=== PATIENT | female | born 1935 | race Caucasian/White ===

== ENCOUNTER 2018-05-01 15:58 | Outpatient (CLI) | payer MEDICARE ==
--- NOTE | 2018-05-01 17:31 | RAD ---
AP AND LATERAL VIEW OF THE SACRUM AND COCCYX: 05/01/18 HISTORY: Sacral pain, M53.38. AP and lateral views of the sacrum and coccyx is obtained. FINDINGS/IMPRESSION: Images demonstrate mild anterolisthesis of L5 on S1. The sacrum and coccyx demonstrate no definite ev idence of displaced fractures. The patient appears to be osteoporotic. If there is concern for sacral pathology, correlate with bone scan and/or possible MRI if clinically indicated. POS: [facility]
--- NOTE | 2018-05-01 17:34 | RAD ---
TWO VIEWS LUMBAR SPINE 05/01/18 HISTORY: Patient with fall. Hematoma to buttock and pain. AP and lateral views of the lumbar spine obtained. Images demonstrate approximately 50% compression fracture involving the L1 vertebral level. There laverne ears to be increasing superior inferior collapse compared to the previous CT which visualized this on 04/21/18. Multiple level vacuum disc changes seen at L2-3, L3-4, L4-5. There is also grade I anterolisthesis of L5 on S1. IMPRESSION: L1 compression fracture with superior inferior height loss with no evidence of retrolisthesis. Multil evel lumbar vacuum disc changes seen. POS: [facility]
== END 2018-05-01 15:59 | disposition home or self-care (01) ==
LOC: TBSIIMAG 15:58
PROVIDERS: ATTEND Neurological Surgery
DX: M54.5 Low back pain (principal); M53.3 Sacrococcygeal disorders, not elsewhere classified; M43.07 Spondylolysis, lumbosacral region; S32.019A Unspecified fracture of first lumbar vertebra, initial encounter for closed fracture
CPT/HCPCS: 72100; 72220

== ENCOUNTER 2018-05-29 13:27 | Outpatient (CLI) | payer MEDICARE ==
--- NOTE | 2018-05-29 15:07 | RAD ---
LUMBAR SPINE 2 VIEWS: HISTORY: Compression fracture. COMPARISON: Radiograph 05/01/2018. FINDINGS: Moderate levoscoliosis in the lumbar spine. Surgical clips involving the right lower hemiabdomen. Compression fracture at L1 appears to be a burst fracture of the retropulsion 2-3 mm. There is progr essive height loss anteriorly approximately 60% anterior height loss. Dense vascular calcification of the aorta. IMPRESSION: Progressive height loss of the L1 burst fracture with 60% anterior height loss and retropulsion 2-3 m m. POS: [facility]
== END 2018-05-29 13:28 | disposition home or self-care (01) ==
LOC: TBSIIMAG 13:27
PROVIDERS: ATTEND Neurological Surgery
DX: S32.011D Stable burst fracture of first lumbar vertebra, subsequent encounter for fracture with routine healing (principal)
CPT/HCPCS: 72100

== ENCOUNTER 2018-07-01 10:37 | Outpatient (CLI) | payer MEDICARE ==
--- NOTE | 2018-07-01 12:04 | RAD ---
LUMBAR SPINE TWO VIEWS: INDICATIONS: Fractured vertebral body. COMPARISON: 05/29/2018 FINDINGS: The compression deformity at the L1 vertebra is again noted. Severe anterior wedging is stable from the prior exam. The other lumbar vertebrae maintain height. There is a mild anterolisthesis at L5-S 1, which is stable. Loss of disk space at all levels, with degenerative osteophytes. IMPRESSION: Compression deformity of L1 is unchanged when compared to 05/29/2018. POS: [facility]
== END 2018-07-01 10:38 | disposition home or self-care (01) ==
LOC: TBSIIMAG 10:37
PROVIDERS: ATTEND Neurological Surgery
DX: S22.008A Other fracture of unspecified thoracic vertebra, initial encounter for closed fracture (principal); M43.8X6 Other specified deforming dorsopathies, lumbar region
CPT/HCPCS: 72100

== ENCOUNTER 2018-08-05 12:37 | Outpatient (CLI) | payer MEDICARE ==
--- NOTE | 2018-08-05 12:54 | RAD ---
Exam: Lumbar spine 2 views: HISTORY: Follow-up L1 vertebral fracture COMPARISON: 07/01/2018 FINDINGS: Stable L1 burst fracture. Bony demineralization. Grade 1 spondylolisthesis of L5 on S1 with mild ante rolisthesis. IMPRESSION: Stable burst fracture of L1. No significant new process.
== END 2018-08-05 12:38 | disposition home or self-care (01) ==
LOC: TBSIIMAG 12:37
PROVIDERS: ATTEND Neurological Surgery
DX: S32.011D Stable burst fracture of first lumbar vertebra, subsequent encounter for fracture with routine healing (principal); M54.16 Radiculopathy, lumbar region
CPT/HCPCS: 72100